=== PATIENT | male | born 1990 | race African-American/Black ===

== ENCOUNTER 2016-05-16 11:09 | Emergency (ER) | payer OTHER ==
[2016-05-16 11:22] VITALS: TEMP 98.1; BMI 20.9
--- NOTE | 2016-05-16 11:33 | PDOC ---
History of Present Illness - General Chief Complaint: Pain Stated Complaint: VOMITING, ABD PAIN Time Seen by Provider: 05/16/16 11:30 History Source: Patient Exam Limitations: No Limitations - History of Present Illness Travel History: No Initial Comments: 05/16/16 11:43 26 yr male states he had abd pain with vomiting on saturday for 12hrs, vomiting has stopped however pt continues to have abd pain. Pt ate a fish sandwich and felt pain return. no fever no diarrhea no constipation. no medial history or allergies. Past History - Past Medical History Allergies/Adverse Reactions: Allergies Allergy/AdvReac Type Severity Reaction Status Date / Time No Known Allergies Allergy Verified 05/16/16 11:21 Home Medications: Ambulatory Orders Famotidine 20 mg PO BID #14 tablet 05/16/16 Other medical history: NONE - Surgical History Other Surgical History: 05/16/16 11:44 none - Psycho/Social/Smoking Cessation Hx Suicidal Ideation: No Smoking History: Never smoked Substance Use Type: None Abd/GI Specific PMHX - Complaint Specific PMHX Colitis: No Diverticulitis: No Gall Bladder Disease: No GERD: No Hepatitis: No Irritable Bowel Synd (IBS): No Pancreatitis: No GI Ulcer Disease: No Review of Systems - Review of Systems Able to Perform ROS?: Yes Is the patient limited Danish proficient: No Constitutional: No: Symptoms Reported, Unintentional Wgt. Loss HEENTM: No: Symptoms Reported Respiratory: No: Symptoms reported Cardiac (ROS): No: Symptoms Reported ABD/GI: Yes: See HPI *Physical Exam - Vital Signs Last Vital Signs Temp Pulse Resp BP Pulse Ox 98.1 F 84 20 133/86 99 05/16/16 11:13 05/16/16 11:13 05/16/16 11:13 05/16/16 11:13 05/16/16 11:13 - Physical Exam General Appearance: Yes: Nourished, Appropriately Dressed HEENT: positive: EOMI, FRANKI, Normal ENT Inspection, TMs Normal, Pharynx Normal Neck: positive: Supple. negative: Tender Respiratory/Chest: positive: Lungs Clear, Normal Breath Sounds Cardiovascular: positive: Regular Rhythm, Regular Rate Gastrointestinal/Abdominal: positive: Normal Bowel Sounds, Tender (epigastric area, no RLQ tenderness or rebound), Soft Male Genitalia: positive: normal genitalia. negative: discharge Rectal Exam: positive: deferred Musculoskeletal: positive: Normal Inspection Extremity: positive: Normal Capillary Refill, Normal Inspection, Normal Range of Motion Integumentary: positive: Normal Color, Dry, Warm Neurologic: positive: Fully Oriented, Alert, Normal Mood/Affect, Normal Response , Motor Strength 09/07 ED Treatment Course - LABORATORY CBC & Chemistry Diagram: 05/16/16 11:49 05/16/16 11:49 Medical Decision Making - Medical Decision Making 05/16/16 13:37 cc: upset stomach after vomiting 2 days ago no vomiting or diarrhea no fever or back pain pt tried to eat fried fish and it caused pain will check labs, maalox, pepcid and re-evaluate pt tolerated apple jucie states he feels better labs are WNL will dc home with pepcid, strict bland diet follow with GI *DC/Admit/Observation/Transfer Diagnosis at time of Disposition: Gastritis Qualifiers: Gastritis type: unspecified gastritis Chronicity: acute Gastritis bleeding: without bleeding Qualified Code(s): K29.00 - Acute gastritis without bleeding - Discharge Dispostion Disposition: HOME Condition at time of disposition: Good - Prescriptions Prescriptions: Famotidine 20 mg PO BID #14 tablet - Referrals Referrals: Maximus Maria [Primary Care Provider] - Filipe Avina MD [Staff Physician] - - Patient Instructions Additional Instructions: bland diet the next 48hrs avoid spicy, fatty, acidic foods avoid alcohol, chocolate eat dry toast, dry crackers, bannannas take the pepcid as directed you may also take maalox as directed or TUMS antactid (over the counter at any pharmacy) follow with the stomach doctor if symptoms worsen or persist return to ER for any worsening symptoms
[2016-05-16] MEDS ORDERED: SODIUM CHLORIDE 0.9% 1000 ML INFUS.BAG IV ONE (11:49)
[2016-05-16] MEDS ORDERED: FAMOTIDINE 20 MG/50 ML IVPB 50 ML IVPB ONE ×2 (11:49→12:30)
[2016-05-16] MEDS ORDERED: MAG HYDROX/AL HYDROX/SIMETH 30 ML UNIT-DOSE CUP PO ONE (11:49)
[2016-05-16 12:21] LABS: MCH 30.2 pg (25.7-33.7); MEAN CELL VOLUME 91.5 fl (80-96); MEAN PLT VOLUME 11.2 fl (7.5-11.1); PLATELET COUNT 183 K/MM3 (134-434); RDW 12.3 % (11.9-15.9); WHITE BLOOD COUNT 4.4 K/mm3 (4.0-10.0)
[2016-05-16] MEDS ORDERED: MAG HYDROX/AL HYDROX/SIMETH 30 ML UNIT-DOSE CUP ONE (12:30)
[2016-05-16 12:41] LABS: ALBUMIN 4.1 g/dl (3.4-5.0); ALK PHOS 57 U/L (45-117); AMYLASE 61 U/L (25-115); ANION GAP 6 (8-16); CALCIUM 9.3 mg/dL (8.5-10.1); CO2 27 mmol/L (21-32); GLUCOSE,RANDOM 79 mg/dL (74-106); SGOT/AST 15 U/L (15-37); SGPT/ALT 17 U/L (12-78); TOT PROT 7.3 g/dl (6.4-8.2)
[2016-05-16 14:09] VITALS: BP 128/78; PULSE 76
== END 2016-05-16 14:10 | disposition home or self-care (01) ==
LOC: JER 11:09
PROC: 3E033GC Introduction of Other Therapeutic Substance into Peripheral Vein, Percutaneous Approach (ICD-10-PCS; principal; 2016-05-16)
DX: K29.00 Acute gastritis without bleeding (principal)
CPT/HCPCS: 36415; 80053; 82150; 83690; 85027; 96365; 99283-25

== ENCOUNTER 2016-11-08 12:18 | Emergency (ER) | payer SELFPAY ==
[2016-11-08 12:37] VITALS: BP 109/57; PULSE 68; TEMP 98.2; BMI 21.7
--- NOTE | 2016-11-08 13:31 | PDOC ---
History of Present Illness - General Chief Complaint: Chest Pain Stated Complaint: CHEST PAIN Time Seen by Provider: 11/08/16 13:28 History Source: Patient Exam Limitations: No Limitations - History of Present Illness Initial Comments: CHIEF COMPLAINT: 26 y/o afebrile male with no significant PMH c/o chest pain x 1 month. HISTORY OF PRESENT ILLNESS: The patient admits the pain started after he started working. He states it's intermittent and located in the upper sternum. He thinks it's related to lifting heavy stuff at work 3 times per week and from being stressed out at work. He states sometimes it hurts when he takes a deep breath and sometimes with movement. He denies dizziness, f/c, n/v/d, SOB, cough , hemoptysis, changes in vision/hearing, abd pain. He does admit he smokes marijuana daily. He hasn't taken anything for pain and does not have a PCP. Vital signs on arrival are within normal limits. REVIEW OF SYSTEMS: GENERAL/CONSTITUTIONAL: No fever/chills. No weakness. No weight change. HEAD, EYES, EARS, NOSE AND THROAT: No change in vision. No ear pain or discharge. No sore throat. CARDIOVASCULAR: +chest pain. No shortness of breath. RESPIRATORY: No cough, wheezing, or hemoptysis. GASTROINTESTINAL: No abd pain, nausea, vomiting, diarrhea. GENITOURINARY: No dysuria, frequency, or change in urination. MUSCULOSKELETAL: No joint or muscle swelling or pain. No neck or back pain. SKIN: No rash or easy bruising. NEUROLOGIC: No headache, vertigo, loss of consciousness, or loss of sensation. PHYSICAL EXAM: GENERAL: The patient is awake, alert, and fully oriented, in no acute distress. He is very well appearing and ambulatory. HEAD: Normal with no signs of trauma. ENT: Pupils equal, round and reactive to light, extraocular movements intact, sclera anicteric, conjunctiva clear. Neck supple. CHEST WALL: No reproducible pain with palpation of sternum or anterior chest. LUNGS: Clear to auscultation bilaterally. Normal excursion. No respiratory distress or use of accessory muscles. CV: RRR, S1/S2, no MRG. Cap refill < 2 sec. ABDOMEN: Soft, non-distended, non-tender even to deep palpation, no hepatomegaly or splenomegaly, no masses. EXTREMITIES: Normal range of motion, no edema. NEUROLOGICAL: Normal speech, normal gait. CN II-XII grossly intact. PSYCH: Normal mood, normal affect. SKIN: Warm, dry, normal turgor, no rashes or lesions noted. Past History - Past Medical History Allergies/Adverse Reactions: Allergies Allergy/AdvReac Type Severity Reaction Status Date / Time No Known Allergies Allergy Verified 11/08/16 12:34 Home Medications: Ambulatory Orders Famotidine 20 mg PO BID #14 tablet 05/16/16 Ibuprofen 600 mg PO TID #30 tablet 11/08/16 Other medical history: DENIES. - Psycho/Social/Smoking Cessation Hx Suicidal Ideation: No Smoking History: Current some day smoker Have you smoked in the past 12 months: Yes Information on smoking cessation initiated: No Substance Use Type: None Cardiac Specific PMH - Complaint Specific PMHX GERD: No *Physical Exam - Vital Signs Last Vital Signs Temp Pulse Resp BP Pulse Ox 98.2 F 68 17 109/57 98 11/08/16 12:34 11/08/16 12:34 11/08/16 12:34 11/08/16 12:34 11/08/16 12:34 Heart Score/ECG Review - ECG Intrepretation Comment:: Twelve-lead EKG was performed and reviewed by Dr. Angeles. There is normal sinus rhythm with a normal rate. The axis is normal. The intervals are normal. There are no ST or T wave abnormalities. Impression: Normal twelve-lead EKG Medical Decision Making - Medical Decision Making A/P: 26 y/o afebrile male with intermittent chest pain that he states is more noticeable when he is overly stressed out. He states it causes him to have pain when he takes a deep breath. Normal EKG. NOrmal exam. Will discharge to home with instructions to take ibuprofen 3 times per day for 7 days with meals and see if pain improves. Instructed him to return to the ER with any worsening or concerning symptoms. Also suggested he cut back on the smoking and heavy lifting. The patient verbalizes understanding of all instructions, has no further questions and is awaiting discharge. *DC/Admit/Observation/Transfer Diagnosis at time of Disposition: Pleuritic chest pain, Stress - Discharge Dispostion Disposition: HOME Condition at time of disposition: Good - Prescriptions Prescriptions: Ibuprofen 600 mg PO TID #30 tablet - Patient Instructions Printed Discharge Instructions: DI for Atypical Chest Pain, DI for Pleurisy
--- NOTE | 2016-11-09 09:02 | EKG ---
Test Reason : Blood Pressure : / mmHG Vent. Rate : 063 BPM Atrial Rate : 063 BPM P-R Int : 128 ms QRS Dur : 088 ms QT Int : 370 ms P-R-T Axes : 060 079 077 degrees QTc Int : 378 ms NORMAL SINUS RHYTHM NONSPECIFIC T WAVE ABNORMALITY NO PREVIOUS ECGS AVAILABLE Confirmed by AMANDA MOBLEY MD ([id number]) on 11/09/2016 9:01:54 AM Referred By: Confirmed By:AMANDA MOBLEY MD
== END 2016-11-08 14:02 | disposition home or self-care (01) ==
LOC: JERFT 12:18
DX: R07.81 Pleurodynia (principal); F43.9 Reaction to severe stress, unspecified
CPT/HCPCS: 93005; 93010; 99281-25

== ENCOUNTER 2016-11-20 02:46 | Emergency (ER) | payer SELFPAY ==
[2016-11-20 03:10] VITALS: BMI 21.9
--- NOTE | 2016-11-20 03:38 | PDOC ---
History of Present Illness - General Stated Complaint: THROAT PROBLEM,VOMITING Time Seen by Provider: 11/20/16 03:01 - History of Present Illness Initial Comments: 11/20/16 03:38 CHIEF COMPLAINT: throat discomfort HISTORY OF PRESENT ILLNESS: 26 yo M with no PMH presents to ED with throat discomfort. Patient reports feeling "has been in my throat" for the past 4 days. He denies any fever but reports one episode of vomiting tonight. No recent travel or sick contacts. PAST MEDICAL HISTORY: Denies past medical history FAMILY HISTORY: Denies SOCIAL HISTORY: Denies tobacco, alcohol, illicit drug use. SURGICAL HISTORY: Denies ALLERGIES: No known drug allergies REVIEW OF SYSTEMS General/Constitutional: Denies fever or chills. HEENT: "There's something in my throat." Denies change in vision. Denies ear pain or discharge. Cardiovascular: Denies chest pain or shortness of breath. Respiratory: Denies cough, wheezing, or hemoptysis. Gastrointestinal: "I vomited once tonight because of the feeling in my throat, like something was ocming back up." PHYSICAL EXAM General Appearance: Well-appearing, appropriately dressed. No apparent distress. HEENT: No tonsillar erythema, swelling, or exudate. EOMI, PERRLA, normal ENT inspection, normal voice, TMs normal, pharynx normal. No conjunctival pallor. No photophobia, scleral icterus. Neck: Supple. Trachea midline. No tenderness, rigidity, carotid bruit, stridor , lymphadenopathy, or thyromegaly. Respiratory/Chest: Lungs CTAB. Cardiovascular: RRR. S1, S2. Gastrointestinal/Abdominal: Normal bowel sounds. Abdomen soft, non-distended. No tenderness or rebound tenderness. No organomegaly, pulsatile mass, guarding , hernia, hepatomegaly, splenomegaly. Musculoskeletal/Extremities: Normal inspection. FROM of all extremities, normal capillary refill. Pelvis Stable. No CVA tenderness. No tenderness to extremities, pedal edema, swelling, erythema or deformity. Integumentary: Appropriate color, dry, warm. No cyanosis, erythema, jaundice or rash Neurologic: filling mixer II-XII intact. Fully oriented, alert. Appropriate mood/affect. Motor strength 5/5. No appreciable EOM palsy, facial droop or sensory deficit. 11/21/16 03:53 Past History - Past Medical History Allergies/Adverse Reactions: Allergies Allergy/AdvReac Type Severity Reaction Status Date / Time No Known Allergies Allergy Verified 11/20/16 06:00 Home Medications: Ambulatory Orders NK [No Known Home Medication] 11/20/16 - Psycho/Social/Smoking Cessation Hx Suicidal Ideation: No Smoking History: Never smoked Have you smoked in the past 12 months: No Information on smoking cessation initiated: No Hx Alcohol Use: No Drug/Substance Use Hx: No Substance Use Type: None *Physical Exam - Vital Signs Last Vital Signs Temp Pulse Resp BP Pulse Ox 97.5 F L 66 18 124/63 100 11/20/16 03:04 11/20/16 03:04 11/20/16 03:04 11/20/16 03:04 11/20/16 03:04 Medical Decision Making - Medical Decision Making 11/20/16 03:42 26 yo M with no PMH presents to ED with throat discomfort. -rapid strep 11/20/16 05:22 Zantac Patient reassessed; states he still feels like something is stuck in his throat. -Soft tissue neck CT CT negative for foreign body FINDINGS: Bilateral upper advanced dental caries on sagittal image 52 and sagittal image 108. Nonspecific jugular lymph nodes most likely reactive. Mild mucosal thickening bilateral ethmoid and bilateral maxillary sinuses. Mucous retention cysts or polyps in the maxillary sinuses and right sphenoid sinus. Mild cervical kyphosis most likely due to patient positioning or muscle spasm. 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 No acute fracture dislocation or traumatic subluxation. IMPRESSION Bilateral upper advanced dental caries. If clinically indicated recommend a dentist referral. Mild thoracic kyphosis most likely due to patient positioning or muscle spasm. Nonspecific jugular lymph nodes most likely reactive. Mild bilateral ethmoid and bilateral maxillary sinusitis. Read by: Eduardo Weller MD 11/20/16 05:33 -Claritin 10 mg daily Advised patient to f/u with ENT for further evaluation of foreign body sensation. Advised patient of signs and symptoms for return to ER; patient verbalized understanding and agrees to plan. *DC/Admit/Observation/Transfer Diagnosis at time of Disposition: Foreign body sensation in throat - Discharge Dispostion Disposition: HOME Condition at time of disposition: Stable Admit: No - Referrals Referrals: Nick Lawton MD [Staff Physician] - - Patient Instructions Additional Instructions: There was no evidence of anything in your throat on CT scan. Please take medication as prescribed. If your symptoms persist past 4-5 days, please make an appointment with an ENT doctor (referral provided) for further evaluation and possible scope of your throat. If you experience closing of your throat, difficulty breathing, or any new or worsening symptoms, please return to the ER.
[2016-11-20] MEDS ORDERED: RANITIDINE HCL 150 MG/10 ML UNIT-DOSE CUP PO ONE (04:00)
[2016-11-20] MEDS ORDERED: RANITIDINE HCL 150 MG TABLET (FP) ONE (04:17)
[2016-11-20 05:36] VITALS: BP 120/66; PULSE 63; TEMP 97.7
== END 2016-11-20 05:37 | disposition home or self-care (01) ==
LOC: JER 02:46
DX: R09.89 Other specified symptoms and signs involving the circulatory and respiratory systems (principal); K02.9 Dental caries, unspecified; M62.838 Other muscle spasm; M40.294 Other kyphosis, thoracic region
CPT/HCPCS: 70490-TC; 87070; 87430; 99282-25